=== PATIENT | male | born 1960 | race Caucasian/White ===

== ENCOUNTER 2023-03-01 11:10 | Inpatient (IN) | payer OTHER ==
[2023-03-01] MEDS ORDERED: SODIUM CHLORIDE 0.9% 500 ML 500 ML IV STA (11:30)
--- NOTE | 2023-03-01 11:42 | ED ---
General Adult HPI - General Chief complaint: Arrhythmia/Palpitations Stated complaint: Low Heart Rate Time Seen by Provider: 03/01/23 11:22 Source: patient, RN notes reviewed, old records reviewed Mode of arrival: ambulatory Limitations: no limitations - History of Present Illness Initial comments: This is a 62-year-old male presents emergency department stating that about one month ago he had a low heart rate was In the hospital for about 3 days. Patient states she then follow up with cardiology and he was told that they would just watch for now. Patient states a couple times during this last month she's had episodes where he became very lightheaded and tired but he didn't take his pulse. Patient states today he went in to see his physician in his heart rate was in the low 30s and he admittedly sentiment to the emergency department. Patient states she did feel short of breath and somewhat dizzy. Patient denies any chest pain or palpitations. Patient denies headache patient denies numbness weakness. Patient denies abdominal pain patient as nausea vomiting diarrhea. - Related Data Home Medications Medication Instructions Recorded Confirmed No Known Home Medications 03/01/23 03/01/23 Allergies Allergy/AdvReac Type Severity Reaction Status Date / Time No Known Allergies Allergy Verified 03/01/23 12:32 Review of Systems ROS Statement: Those systems with pertinent positive or pertinent negative responses have been documented in the HPI. ROS Other: All systems not noted in ROS Statement are negative. Past Medical History Past Medical History: No Reported History History of Any Multi-Drug Resistant Organisms: None Reported Past Surgical History: Tonsillectomy Additional Past Surgical History / Comment(s): cyst removal from R arm Past Psychological History: No Psychological Hx Reported Smoking Status: Never smoker Past Alcohol Use History: None Reported Past Drug Use History: None Reported General Exam - General Exam Comments Initial Comments: GENERAL: Patient is well-developed and well-nourished. Patient is nontoxic and well- hydrated and is in no acute distress. ENT: Neck is soft and supple. No significant lymphadenopathy is noted. Oropharynx is clear. Moist mucous membranes. Neck has full range of motion without eliciting any pain. EYES: The sclera were anicteric and conjunctiva were pink and moist. Extraocular movements were intact and pupils were equal round and reactive to light. Eyelids were unremarkable. PULMONARY: Unlabored respirations. Good breath sounds bilaterally. No audible rales rhonchi or wheezing was noted. CARDIOVASCULAR: Patient has a heart rate of 40 beats a minute ABDOMEN: Soft and nontender with normal bowel sounds. No palpable organomegaly was noted. There is no palpable pulsatile mass. SKIN: Skin is clear with no lesions or rashes and otherwise unremarkable. NEUROLOGIC: Patient is alert and oriented x3. Cranial nerves II through XII are grossly intact. Motor and sensory are also intact. Normal speech, volume and content. Symmetrical smile. MUSCULOSKELETAL: Normal extremities with adequate strength and full range of motion. No lower extremity swelling or edema. No calf tenderness. LYMPHATICS: No significant lymphadenopathy is noted PSYCHIATRIC: Normal psychiatric evaluation. Limitations: no limitations Course Vital Signs 03/01/23 03/01/23 11:16 11:19 Temperature 98 F 98.1 F Pulse Rate 46 L 42 L Respiratory 18 12 Rate Blood Pressure 165/93 O2 Sat by Pulse 98 Oximetry Medical Decision Making - Medical Decision Making EKG shows sinus bradycardia at 40 beats a minute NM interval 263 QRS is 82 QT intervals 476 QTC is 410. Patient's EKG shows no ST segment elevation Was pt. sent in by a medical professional or institution (, PA, CAMPER ASSEMBLER, urgent c are, hospital, or [facility]...) When possible be specific @ -Patient was told to come in by his primary medical care provider Did you speak to anyone other than the patient for history (EMS, parent, family, police, friend...)? What history was obtained from this source @ -[No] Did you review nursing and triage notes (agree or disagree)? Why? @ -[I reviewed and agree with nursing and triage notes] Were old charts reviewed (outside hosp., previous admission, EMS record, old EKG , old radiological studies, urgent care reports/EKG's, [facility] records)? Report findings @ -[No old charts were reviewed] Differential Diagnosis (chest pain, altered mental status, abdominal pain women, abdominal pain men, vaginal bleeding, weakness, fever, dyspnea, syncope, headache, dizziness, GI bleed, back pain, seizure, CVA, palpatations, mental hea lth, musculoskeletal)? @ -Differential Dizziness: Benign paroxysmal positional Vertigo, Menieres disease, otitis media, acoustic neuroma, vertebrobasilar insufficiency, cerebellar stroke, encephalitis, hypovolemic, arrhythmia, coronary artery syndrome, anemia, this is not meant to be an all-inclusive list EKG interpreted by me (3pts min.). @ -[As above] X-rays interpreted by me (1pt min.). @ -Showed no acute abnormality CT interpreted by me (1pt min.). @ -[None done] U/S interpreted by me (1pt. min.). @ -[None done] What testing was considered but not performed or refused? (CT, X-rays, U/S, labs)? Why? @ -[None] What meds were considered but not given or refused? Why? @ -[None] Did you discuss the management of the patient with other professionals (professionals i.e. Dr., PA, CAMPER ASSEMBLER, lab, RT, psych nurse, social worker aide, intake counselor, teacher, learning officer, case sealer)? Give summary @ -I spoke with sound physician's and they agreed to admit the patient Was smoking cessation discussed for >3mins.? @ -[No] Was critical care preformed (if so, how long)? @ -[No] Were there social determinants of health that impacted care today? How? (Homelessness, low income, unemployed, alcoholism, drug addiction, transportat ion, low edu. Level, literacy, decrease access to med. care, nursing home, rehab)? @ -[No] Was there de-escalation of care discussed even if they declined (Discuss DNR or withdrawal of care, Hospice)? DNR status @ -[No] What co-morbidities impacted this encounter? (DM, HTN, Smoking, COPD, CAD, Cancer, CVA, ARF, Chemo, Hep., AIDS, mental health diagnosis, sleep apnea, morbid obesity)? @ -[None] Was patient admitted / discharged? Hospital course, mention meds given and route, prescriptions, significant lab abnormalities, going to OR and other pertinent info. @ -Patient was seen in emergency department and heart rate stayed between 38 and 44 beats a minute he was asymptomatic as long as he is lying in bed however if he got up he was dizzy. I spoke with sound physician's and they agreed to admit the patient admitted the patient I consult cardiology Undiagnosed new problem with uncertain prognosis? @ -[No] Drug Therapy requiring intensive monitoring for toxicity (Heparin, Nitro, Insulin, Cardizem)? @ -[No] Were any procedures done? @ -[No] Diagnosis/symptom? @ -Symptomatic bradycardia Acute, or Chronic, or Acute on Chronic? @ -Acute Uncomplicated (without systemic symptoms) or Complicated (systemic symptoms)? @ -Complicated Side effects of treatment? @ -[No] Exacerbation, Progression, or Severe Exacerbation? @ -[No] Poses a threat to life or bodily function? How? (Chest pain, [place], [place], pneumonia, PE, COPD, DKA, ARF, appy, cholecystitis, CVA, Diverticulitis, Homicidal, Suicidal, threat to staff... and all critical care pts) @ -Yes this could lead to poor perfusion and end organ dysfunction - Lab Data Result diagrams: 03/01/23 11:41 03/01/23 11:41 Lab Results 03/01/23 03/01/23 03/01/23 Range/Units 11:41 11:41 11:41 WBC 6.9 (3.8-10.6) k/uL RBC 5.21 (4.30-5.90) m/uL Hgb 15.7 (13.0-17.5) gm/dL Hct 46.4 (39.0-53.0) % MCV 89.2 (80.0-100.0) fL MCH 30.3 (25.0-35.0) pg MCHC 33.9 (31.0-37.0) g/dL RDW 12.7 (11.5-15.5) % Plt Count 243 (150-450) k/uL MPV 7.0 Neutrophils % 62 % Lymphocytes % 26 % Monocytes % 5 % Eosinophils % 4 % Basophils % 1 % Neutrophils # 4.3 (1.3-7.7) k/uL Lymphocytes # 1.8 (1.0-4.8) k/uL Monocytes # 0.4 (0-1.0) k/uL Eosinophils # 0.3 (0-0.7) k/uL Basophils # 0.1 (0-0.2) k/uL PT 10.6 (9.0-12.0) sec INR 1.0 (<1.2) APTT 24.7 (22.0-30.0) sec Sodium 143 (137-145) mmol/L Potassium 3.7 (3.5-5.1) mmol/L Chloride 104 (98-107) mmol/L Carbon Dioxide 26 (22-30) mmol/L Anion Gap 13 mmol/L BUN 16 (9-20) mg/dL Creatinine 1.12 (0.66-1.25) mg/dL Est GFR (CKD-EPI)AfAm 82 (>60 ml/min/1.73 sqM) Est GFR (CKD-EPI)NonAf 71 (>60 ml/min/1.73 sqM) Glucose 102 H (74-99) mg/dL Calcium 9.3 (8.4-10.2) mg/dL Magnesium 2.3 (1.6-2.3) mg/dL Total Bilirubin 0.7 (0.2-1.3) mg/dL AST 36 (17-59) U/L ALT 38 (4-49) U/L Alkaline Phosphatase 67 (38-126) U/L Troponin I (0.000-0.034) ng/mL Total Protein 8.1 (6.3-8.2) g/dL Albumin 4.9 (3.5-5.0) g/dL TSH 1.510 (0.465-4.680) mIU/L 03/01/23 Range/Units 11:41 WBC (3.8-10.6) k/uL RBC (4.30-5.90) m/uL Hgb (13.0-17.5) gm/dL Hct (39.0-53.0) % MCV (80.0-100.0) fL MCH (25.0-35.0) pg MCHC (31.0-37.0) g/dL RDW (11.5-15.5) % Plt Count (150-450) k/uL MPV Neutrophils % % Lymphocytes % % Monocytes % % Eosinophils % % Basophils % % Neutrophils # (1.3-7.7) k/uL Lymphocytes # (1.0-4.8) k/uL Monocytes # (0-1.0) k/uL Eosinophils # (0-0.7) k/uL Basophils # (0-0.2) k/uL PT (9.0-12.0) sec INR (<1.2) APTT (22.0-30.0) sec Sodium (137-145) mmol/L Potassium (3.5-5.1) mmol/L Chloride (98-107) mmol/L Carbon Dioxide (22-30) mmol/L Anion Gap mmol/L BUN (9-20) mg/dL Creatinine (0.66-1.25) mg/dL Est GFR (CKD-EPI)AfAm (>60 ml/min/1.73 sqM) Est GFR (CKD-EPI)NonAf (>60 ml/min/1.73 sqM) Glucose (74-99) mg/dL Calcium (8.4-10.2) mg/dL Magnesium (1.6-2.3) mg/dL Total Bilirubin (0.2-1.3) mg/dL AST (17-59) U/L ALT (4-49) U/L Alkaline Phosphatase (38-126) U/L Troponin I <0.012 (0.000-0.034) ng/mL Total Protein (6.3-8.2) g/dL Albumin (3.5-5.0) g/dL TSH (0.465-4.680) mIU/L Disposition Clinical Impression: Symptomatic bradycardia Disposition: ADMITTED IP TO THIS HOSP Referrals: [facility],Clinic [Primary Care Provider] - 1-2 days Time of Disposition: 13:51
[2023-03-01 11:54] LABS: Basophils # (A) 0.1 k/uL (0-0.2); Basophils % (A) 1 %; Eosinophils # (A) 0.3 k/uL (0-0.7); Eosinophils % (A) 4 %; HCT 46.4 % (39.0-53.0); HGB 15.7 gm/dL (13.0-17.5); Lymphocytes # (A) 1.8 k/uL (1.0-4.8); Lymphocytes % (A) 26 %; MCH 30.3 pg (25.0-35.0); MCHC 33.9 g/dL (31.0-37.0); MCV 89.2 fL (80.0-100.0); Monocytes # (A) 0.4 k/uL (0-1.0); Monocytes % (A) 5 %; Neutrophils # (A) 4.3 k/uL (1.3-7.7); Neutrophils % (A) 62 %; Platelet Count 243 k/uL (150-450); RBC 5.21 m/uL (4.30-5.90); RDW 12.7 % (11.5-15.5); WBC 6.9 k/uL (3.8-10.6)
[2023-03-01 12:02] LABS: Partial Thromboplastin Time 24.7 sec (22.0-30.0); Prothrombin Time 10.6 sec (9.0-12.0)
--- NOTE | 2023-03-01 12:04 | XR ---
EXAMINATION TYPE: XR chest 2V DATE OF EXAM: 03/01/2023 12:01 PM COMPARISON: None TECHNIQUE: XR chest 2V Frontal and lateral views of the chest. CLINICAL INDICATION:Male, 62 years old with history of dysrhythmia; FINDINGS: Lungs/Pleura: There is no evidence of pleural effusion, focal consolidation, or pneumothorax. Pulmonary vascularity: Unremarkable. Heart/mediastinum: Cardiomediastinal silhouette is prominent in size. Musculoskeletal: No acute osseous pathology. IMPRESSION: No acute cardiopulmonary disease/process.
[2023-03-01 12:23] LABS: Albumin 4.9 g/dL (3.5-5.0); Calcium 9.3 mg/dL (8.4-10.2); Magnesium 2.3 mg/dL (1.6-2.3); Potassium 3.7 mmol/L (3.5-5.1); Total Bilirubin 0.7 mg/dL (0.2-1.3); Total Protein 8.1 g/dL (6.3-8.2)
[2023-03-01] MEDS ORDERED: NITROGLYCERIN SL TABS 0.4 MG TAB SUBLINGUAL PRN (13:51)
--- NOTE | 2023-03-01 15:49 | P.HPIM ---
History of Present Illness H&P Date: 03/01/23 Chief Complaint: Lightheadedness Patient is a 62-year-old male with no significant past medical history who was sent from the [place] clinic for bradycardia. Patient states that about a month ago he went to a clinic because of shortness of breath and was found to have bradycardia so they sent him to the hospital. Patient states that he went to [facility] was monitored there for 3 days and then he was discharged and told to follow-up with cardiology. Patient states that he followed up with Dr. Benitez and that day his heart rate was within normal limits so he was told to continue to monitor himself. Patient went to the [place] clinic to get esta blished. He did not have any symptoms or complaints prior to his visit at the clinic. At the clinic he did get a little bit lightheaded. Patient states that sometime last month when he is in the car with his he felt he was almost about to pass out. However he did not lose consciousness. Patient heart rate currently in the 40s. He is resting comfortably in bed. He is denying any chest pain or shortness of breath or lightheadedness. EKG shows sinus bradycardia. Data reviewed: Troponin within normal limits. TSH within normal limits. EKG shows sinus bradycardia. Review of symptoms:10 ROS reviewed and are negative except as noted in HPI Physical exam General: [Alert and oriented, well nourished, no acute distress]. Eye: [PERRL, EOMI, normal conjunctiva]. HENT: [Normocephalic, clear tympanic membranes, normal hearing, moist oral mucosa, no scleral icterus, no sinus tenderness]. Neck: [Supple, non-tender, no carotid bruits, no JVD, no lymphadenopathy]. Lungs: [Clear to auscultation and percussion, non-labored respiration]. Heart: [Bradycardia, regular rhythm, no murmur, gallop or edema]. Abdomen: [Soft, non-tender, non-distended, normal bowel sounds, no masses]. Musculoskeletal: [Normal range of motion and strength, no tenderness or swelling]. Skin: [Skin is warm, dry and pink, no rashes or lesions]. Neurologic: [Awake, alert, and oriented X3, CN II-XII intact]. Psychiatric: [Cooperative, appropriate mood and affect]. Assessment Sinus bradycardia Plan Patient currently asymptomatic. There is no high degree block seen on the EKG. No emergent need for pacemaker. However I believe patient may benefit from pacemaker as he is intermittently symptomatic. Will defer to cardiology. Trend troponins Nothing by mouth past midnight DVT prophylaxis: Subcu heparin Anticipated discharge: Tomorrow Anticipated discharge place: Home Past Medical History Past Medical History: No Reported History History of Any Multi-Drug Resistant Organisms: None Reported Past Surgical History: Tonsillectomy Additional Past Surgical History / Comment(s): cyst removal from R arm Past Psychological History: No Psychological Hx Reported Smoking Status: Never smoker Past Alcohol Use History: None Reported Past Drug Use History: None Reported Medications and Allergies Home Medications Medication Instructions Recorded Confirmed Type No Known Home Medications 03/01/23 03/01/23 History Allergies Allergy/AdvReac Type Severity Reaction Status Date / Time No Known Allergies Allergy Verified 03/01/23 12:32 Physical Exam Osteopathic Statement: *. No significant issues noted on an osteopathic structural exam other than those noted in the History and Physical/Consult. Vitals: Vital Signs Temp Pulse Resp BP Pulse Ox 03/01/23 11:19 98.1 F 42 L 12 03/01/23 11:16 98 F 46 L 18 165/93 98 Intake and Output 03/01/23 03/01/23 03/01/23 06:59 14:59 22:59 Other: Weight 190 kg Results CBC & Chem 7: 03/01/23 11:41 03/01/23 11:41 Labs: Abnormal Lab Results - Last 24 Hours (Table) 03/01/23 Range/Units 11:41 Glucose 102 H (74-99) mg/dL
[2023-03-01] MEDS: HEPARIN SODIUM,PORCINE/PF 5,000 UNIT/0.5 ML SYRINGE SQ SCH (17:28)
[2023-03-02] MEDS: HEPARIN SODIUM,PORCINE/PF 5,000 UNIT/0.5 ML SYRINGE SQ SCH ×4 (01:55→18:14)
[2023-03-02] MEDS: ASPIRIN 325 MG TAB PO SCH ×2 (08:00→08:03)
--- NOTE | 2023-03-02 11:02 | P.CRDCN ---
History of Present Illness History of present illness: HISTORY OF PRESENT ILLNESS: This is a 62-year-old male with a past medical history significant for sinus bradycardia, hyperlipidemia, mild coronary artery disease, and shortness of breath with exertion. Patient follows in the office with Dr. Benitez. We have been asked to see the patient in consultation for bradycardia. Patient examined at the bedside. Patient was recently admitted to [facility] in January 2023 with shortness of breath and bradycardia with a heart rate in the 30s and 40s. He was discharged home in stable condition. The patient followed up with Dr. Benitez in January 2023 and no pacemaker was indicated at that time. The patient states that he went to the [place] clinic yesterday to establish care and an EKG was performed which revealed bradycardia and he was referred to the hospital for further evaluation. The patient denies any chest pain or pressure. He denies any shortness of breath. 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 He states that his vision had returned to normal by the time they got home. He denies having any syncopal episodes. He denies any dizziness or lightheadedness. It is noted that the patient had an echocardiogram performed at [facility] revealing ejection fra ction 55-60%, trace aortic regurgitation, mild mitral regurgitation, and mild tricuspid regurgitation. He underwent a stress test which was abnormal and then underwent heart catheterization showing mild CAD with 10% stenosis of LAD and RCA. The patient was found to have hyperlipidemia with an LDL of 130. He was discharged home with a statin however the patient is refusing to take this as he states he does not want to be on medications. * EKG reveals sinus bradycardia * Chest xray negative for acute process * Laboratory data: WBC 6.9. Hemoglobin 15.7. Platelet count 243. Sodium 143. Potassium 3.7. BUN 16. Creatinine 1.12. Troponin negative 3. TSH 1.510. * Current home cardiac medications include none REVIEW OF SYSTEMS: At the time of my exam: CONSTITUTIONAL: Denies fever or chills. HEENT: Denies blurred vision, vision changes, or eye pain. Denies hemoptysis CARDIOVASCULAR: Denies chest pain. Denies orthopnea. Denies PND. Denies palpitations RESPIRATORY: Denies shortness of breath. GASTROINTESTINAL: Denies abdominal pain. Denies nausea or vomiting. HEMATOLOGIC: Denies bleeding disorders. GENITOURINARY: Denies any blood in urine. SKIN: Denies pruitis. Denies rash. PHYSICAL EXAM: VITAL SIGNS: Reviewed. GENERAL: Well-developed in no acute distress. HEENT: Head is normocephalic. Pupils are equal, round. Sclerae anicteric. Mucous membranes of the mouth are moist. Neck supple. No JVD or thyromegaly LUNGS: Respirations even and unlabored. Lungs essentially clear to auscultation bilaterally. HEART: Bradycardic. Regular rate and rhythm. S1 and S2 heard. ABDOMEN: Soft. Nondistended. Nontender. EXTREMITIES: Normal range of motion. No clubbing or cyanosis. Peripheral pulses intact. No lower extremity edema NEUROLOGIC: Awake and alert. Oriented x 3. ASSESSMENT: Sinus bradycardia Mild nonobstructive coronary artery disease Shortness of breath with exertion Hyperlipidemia, refusing statin therapy Hypertension PLAN: No need to repeat echo as this was performed recently Add aspirin 81mg daily Patient declining statin therapy at recent outpatient follow up Add amlodipine 5 mg daily for blood pressure control Increase activity as tolerated No plans for pacemaker implantation at this time Further recommendations pending patient's course Nurse practitioner note has been reviewed by physician. Signing provider agrees with the documented findings, assessment, and plan of care. Past Medical History Past Medical History: No Reported History Additional Past Medical History / Comment(s): Bradycardia History of Any Multi-Drug Resistant Organisms: None Reported Past Surgical History: Tonsillectomy Additional Past Surgical History / Comment(s): cyst removal from R arm Past Anesthesia/Blood Transfusion Reactions: No Reported Reaction Past Psychological History: No Psychological Hx Reported Smoking Status: Never smoker Past Alcohol Use History: None Reported Past Drug Use History: None Reported - Past Family History Father Family Medical History: Diabetes Mellitus Medications and Allergies Home Medications Medication Instructions Recorded Confirmed Type No Known Home Medications 03/01/23 03/01/23 History Allergies Allergy/AdvReac Type Severity Reaction Status Date / Time No Known Allergies Allergy Verified 03/01/23 12:32 Physical Exam Vitals: Vital Signs Temp Pulse Pulse Pulse Resp BP BP 03/02/23 08:04 03/02/23 08:00 97.9 F 38 L 38 L 16 157/86 03/02/23 04:00 97.8 F 44 L 18 156/76 03/02/23 02:00 44 L 18 03/02/23 00:00 40 L 18 156/78 03/01/23 21:32 03/01/23 20:00 97.8 F 41 L 18 150/74 03/01/23 17:51 41 L 16 03/01/23 17:50 97.7 F 41 L 16 166/76 03/01/23 16:00 42 L 155/90 03/01/23 15:00 98.0 F 41 L 16 161/89 03/01/23 11:19 98.1 F 42 L 12 03/01/23 11:16 98 F 46 L 18 165/93 Pulse Ox FiO2 03/02/23 08:04 97 03/02/23 08:00 97 03/02/23 04:00 96 03/02/23 02:00 03/02/23 00:00 95 03/01/23 21:32 96 21 03/01/23 20:00 96 03/01/23 17:51 03/01/23 17:50 96 03/01/23 16:00 03/01/23 15:00 97 03/01/23 11:19 03/01/23 11:16 98 Intake and Output 03/01/23 03/02/23 03/02/23 22:59 06:59 14:59 Intake Total 180 Balance 180 Intake: Oral 180 Other: Voiding Method Toilet Toilet Toilet # Voids 2 Results 03/01/23 11:41 03/01/23 11:41 Cardiac Enzymes 03/01/23 03/01/23 03/01/23 Range/Units 11:41 11:41 15:25 AST 36 (17-59) U/L Troponin I <0.012 <0.012 (0.000-0.034) ng/mL 03/01/23 Range/Units 18:47 AST (17-59) U/L Troponin I <0.012 (0.000-0.034) ng/mL Coagulation 03/01/23 Range/Units 11:41 PT 10.6 (9.0-12.0) sec APTT 24.7 (22.0-30.0) sec CBC 03/01/23 Range/Units 11:41 WBC 6.9 (3.8-10.6) k/uL RBC 5.21 (4.30-5.90) m/uL Hgb 15.7 (13.0-17.5) gm/dL Hct 46.4 (39.0-53.0) % Plt Count 243 (150-450) k/uL Comprehensive Metabolic Panel 03/01/23 Range/Units 11:41 Sodium 143 (137-145) mmol/L Potassium 3.7 (3.5-5.1) mmol/L Chloride 104 (98-107) mmol/L Carbon Dioxide 26 (22-30) mmol/L BUN 16 (9-20) mg/dL Creatinine 1.12 (0.66-1.25) mg/dL Glucose 102 H (74-99) mg/dL Calcium 9.3 (8.4-10.2) mg/dL AST 36 (17-59) U/L ALT 38 (4-49) U/L Alkaline Phosphatase 67 (38-126) U/L Total Protein 8.1 (6.3-8.2) g/dL Albumin 4.9 (3.5-5.0) g/dL Current Medications Generic Name Dose Route Start Last Admin Trade Name Freq PRN Reason Stop Dose Admin Aspirin 325 mg 03/02/23 09:00 03/02/23 08:03 Aspirin 325 Mg Tab PO Not Given DAILY SUNG Heparin Sodium (Porcine) 5,000 unit 03/01/23 16:00 03/02/23 08:03 Heparin Sodium,Porcine/Pf 5,000 Unit/0.5 Ml Syringe SQ Not Given Q8HR SUNG Nitroglycerin 0.4 mg 03/01/23 13:51 Nitroglycerin Sl Tabs 0.4 Mg Tab SUBLINGUAL Q5M PRN Chest Pain Intake and Output 03/01/23 03/02/23 03/02/23 22:59 06:59 14:59 Intake Total 180 Balance 180 Intake: Oral 180 Other: Voiding Method Toilet Toilet Toilet # Voids 2 03/01/23 11:41 03/01/23 11:41
[2023-03-02] MEDS: amLODIPine 5 MG TAB PO SCH (11:41)
--- NOTE | 2023-03-02 12:46 | P.PN ---
Subjective Progress Note Date: 03/02/23 Patient is a 62-year-old male with no significant past medical history who was sent from the [place] clinic for bradycardia. Patient states that about a month ago he went to a clinic because of shortness of breath and was found to have bradycardia so they sent him to the hospital. Patient states that he went to [facility] was monitored there for 3 days and then he was discharged and told to follow-up with cardiology. Patient states that he followed up with Dr. Benitez and that day his heart rate was within normal limits so he was told to continue to monitor himself. Patient went to the [place] clinic to get established. He did not have any symptoms or complaints prior to his visit at the clinic. At the clinic he did get a little bit lightheaded. Patient states that sometime last month when he is in the car with his he felt he was almost about to pass out. However he did not lose consciousness. Patient heart rate currently in the 40s. He is resting comfortably in bed. He is denying any chest pain or shortness of breath or lightheadedness. EKG shows sinus bradycardia. Cardiology recommended to continue to monitor patient Patient was seen this morning. Patient is denying any acute complaints. He denied any lightheadedness or chest pain. His heart rate is in the 30s and 40s. 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 Troponin is negative 3 I reviewed cardiology note who said no plan for pacemaker at this time and will continue to monitor DVT prophylaxis: Subcu heparin Anticipated discharge: Tomorrow Anticipated discharge place: Home Objective - Vital Signs Vital signs: Vital Signs Temp 97.4 F L 03/02/23 11:44 Pulse 42 L 03/02/23 11:44 Resp 16 03/02/23 11:44 BP 154/84 03/02/23 11:44 Pulse Ox 97 03/02/23 11:44 FiO2 21 03/01/23 21:32 Intake & Output 03/01/23 03/02/23 03/02/23 18:59 06:59 18:59 Intake Total 180 Balance 180 Weight 190 kg Intake: Oral 180 Other: Voiding Method Toilet Toilet Toilet # Voids 2 - Labs CBC & Chem 7: 03/01/23 11:41 03/01/23 11:41
[2023-03-02 13:42] LABS: LDL Cholesterol,Calculated 125.1 mg/dL (0.0-131.0)
[2023-03-03] MEDS: HEPARIN SODIUM,PORCINE/PF 5,000 UNIT/0.5 ML SYRINGE SQ SCH ×3 (01:45→16:06)
[2023-03-03] MEDS: amLODIPine 5 MG TAB PO SCH ×3 (08:28→14:32)
[2023-03-03] MEDS: ASPIRIN 81 MG PO SCH (08:31)
--- NOTE | 2023-03-03 09:34 | P.PN ---
Subjective Progress Note Date: 03/03/23 Patient is a 62-year-old male with no significant past medical history who was sent from the [place] clinic for bradycardia. Patient states that about a month ago he went to a clinic because of shortness of breath and was found to have bradycardia so they sent him to the hospital. Patient states that he went to [facility] was monitored there for 3 days and then he was discharged and told to follow-up with cardiology. Patient states that he followed up with Dr. Benitez and that day his heart rate was within normal limits so he was told to continue to monitor himself. Patient went to the [place] clinic to get established. He did not have any symptoms or complaints prior to his visit at the clinic. At the clinic he did get a little bit lightheaded. Patient states that sometime last month when he is in the car with his he felt he was almost about to pass out. However he did not lose consciousness. Patient heart rate currently in the 40s. He is resting comfortably in bed. He is denying any chest pain or shortness of breath or lightheadedness. EKG shows sinus bradycardia. Cardiology recommended to continue to monitor patient Patient states that he does have some shortness of breath with exertion. He is denying any syncope or presyncope at this time. 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 Cardiology started the patient on amlodipine however patient refusing to take i t. Patient blood pressure currently in the 150s systolically which is acceptable. Okay to hold off on amlodipine for now. Awaiting for line maintainer to see patient DVT prophylaxis: Subcu heparin Anticipated discharge: We'll discharge patient cleared by cardiology Anticipated discharge place: Home Objective - Vital Signs Vital signs: Vital Signs Temp 97.3 F L 03/03/23 08:30 Pulse 39 L 03/03/23 08:30 Resp 18 03/03/23 08:30 BP 154/73 03/03/23 08:30 Pulse Ox 97 03/03/23 08:30 FiO2 21 03/01/23 21:32 Intake & Output 03/02/23 03/03/23 03/03/23 18:59 06:59 18:59 Intake Total 180 Balance 180 Intake: Oral 180 Other: Voiding Method Toilet Toilet Toilet # Voids 1 3 - Labs CBC & Chem 7: 03/01/23 11:41 03/01/23 11:41
--- NOTE | 2023-03-03 11:00 | P.PN ---
Subjective Progress Note Date: 03/03/23 PROGRESS NOTE The patient is a 62-year-old male with a known history of hypertension, sinus bradycardia and mild CAD, followed by Dr. Benitez who presented with sinus bradycardia and mild fatigue and dizziness but no syncope. He continues to feel tired and he has no chest discomfort. He is slightly dizzy. He continues to be in sinus mechanism with no significant pauses. He was reluctant in the morning to take amlodipine. His blood pressure remains elevated Medications: Aspirin, he was prescribed amlodipine 5 mg daily PHYSICAL EXAMINATION: Blood pressure 154/70 heart rate 39 LUNGS: Clear to auscultation HEART: Regular rate and rhythm, S1, S2. No S3. No systolic murmur ABDOMEN: Soft, nontender, no organomegaly EXTREMETIES: No edema LAB: Cholesterol is 195, LDL 125 IMPRESSION: 1. Sinus bradycardia with no significant pauses, patient has symptoms of fatigue and occasional dizziness that could be related to the sinus bradycardia 2. Mild CAD 3. Hypertension 4. Hyperlipidemia, patient declined statin in the past PLAN: 1. Start amlodipine 2. Increase physical activity and monitor heart rate 3. Of the patient has significant chronotropic incompetence and symptoms he may require permanent pacemaker 4. Depending on his progress further recommendations will be made Objective - Vital Signs Vital signs: Vital Signs Temp 97.3 F L 03/03/23 08:30 Pulse 39 L 03/03/23 08:30 Resp 18 03/03/23 08:30 BP 154/73 03/03/23 08:30 Pulse Ox 97 03/03/23 08:30 FiO2 21 03/01/23 21:32 Intake & Output 03/02/23 03/03/23 03/03/23 18:59 06:59 18:59 Intake Total 180 Balance 180 Intake: Oral 180 Other: Voiding Method Toilet Toilet Toilet # Voids 1 3 - Labs CBC & Chem 7: 03/01/23 11:41 03/01/23 11:41
[2023-03-04] MEDS: HEPARIN SODIUM,PORCINE/PF 5,000 UNIT/0.5 ML SYRINGE SQ SCH ×4 (01:06→23:05)
[2023-03-04] MEDS: amLODIPine 5 MG TAB PO SCH (09:46)
[2023-03-04] MEDS: ASPIRIN 81 MG PO SCH (09:47)
--- NOTE | 2023-03-04 14:29 | P.PN ---
Subjective Progress Note Date: 03/04/23 PROGRESS NOTE The patient is a 62-year-old male with a known history of hypertension, sinus bradycardia and mild CAD, followed by Dr. Benitez who presented with sinus bradycardia and mild fatigue and dizziness with near syncope. He continues to feel tired and he has no chest discomfort. He is slightly dizzy. He continues to be in sinus mechanism with no significant pauses. records obtained from [facility] and reviewed. Patient gives history of episodes where he has had to stop driving and his had to take the steering wheel because he had sudden onset of blurry vision nausea. Another episode where his daughter had to drive him home because he felt completely wiped out. Patient ambulated down the hallway and back to his room while being monitored. His heart rate went up to 108 in he was complaining of shortness of breath and appeared dyspneic. Medications: Aspirin, amlodipine 5 mg daily PHYSICAL EXAMINATION: Blood pressure 149/85 heart rate 42 LUNGS: Clear to auscultation HEART: Regular rate and rhythm, S1, S2. No S3. No systolic murmur ABDOMEN: Soft, nontender, no organomegaly EXTREMETIES: No edema LAB: Cholesterol is 195, LDL 12, tsh 1.510 IMPRESSION: 1. Sinus bradycardia with no significant pauses, patient has symptoms of fatigue and occasional dizziness that could be related to the sinus bradycardia 2. Mild CAD 3. Hypertension 4. Hyperlipidemia, patient declined statin in the past PLAN: 1. Continue amlodipine 2. Increase physical activity and monitor heart rate 3. Of the patient has significant chronotropic incompetence and symptoms he may require permanent pacemaker 4. Plan to monitor patient on telemetry for another 24 hours. Nurse practitioner note has been reviewed, I agree with the documented findings and plan of care. Patient was seen and examined. Objective - Vital Signs Vital signs: Vital Signs Temp 97.7 F 03/04/23 04:00 Pulse 47 L 03/04/23 04:00 Resp 16 03/04/23 04:00 BP 147/84 03/04/23 04:00 Pulse Ox 98 03/04/23 04:00 FiO2 21 03/01/23 21:32 Intake & Output 03/03/23 03/04/23 03/04/23 18:59 06:59 18:59 Intake Total 360 1080 Balance 360 1080 Intake: Oral 360 1080 Other: Voiding Method Toilet Toilet # Voids 1 2 - Labs CBC & Chem 7: 03/01/23 11:41 03/01/23 11:41
--- NOTE | 2023-03-04 15:35 | P.PN ---
Subjective Progress Note Date: 03/04/23 Patient is a 62-year-old male with no significant past medical history who was sent from the [place] clinic for bradycardia. Patient states that about a month ago he went to a clinic because of shortness of breath and was found to have bradycardia so they sent him to the hospital. Patient states that he went to [facility] was monitored there for 3 days and then he was discharged and told to follow-up with cardiology. Patient states that he followed up with Dr. Benitez and that day his heart rate was within normal limits so he was told to continue to monitor himself. Patient went to the [place] clinic to get established. He did not have any symptoms or complaints prior to his visit at the clinic. At the clinic he did get a little bit lightheaded. Patient states that sometime last month when he is in the car with his he felt he was almost about to pass out. However he did not lose consciousness. Patient heart rate currently in the 40s. He is resting comfortably in bed. He is denying any chest pain or shortness of breath or lightheadedness. EKG shows sinus bradycardia. Cardiology recommended to continue to monitor patient Patient states that today the collision repair technician made him walk in the hallways. He denied any symptoms while walking the hallway. Patient heart rate continues to be in the 30s and 40s. 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 Cardiology would like to monitor patient for another 24 hours Patient refuses to take amlodipine DVT prophylaxis: Subcu heparin Anticipated discharge: We'll discharge patient once cleared by cardiology Anticipated discharge place: Home Objective - Vital Signs Vital signs: Vital Signs Temp 97.8 F 03/04/23 11:36 Pulse 42 L 03/04/23 14:00 Resp 17 03/04/23 14:00 BP 149/85 03/04/23 11:36 Pulse Ox 97 03/04/23 11:36 FiO2 21 03/01/23 21:32 Intake & Output 03/03/23 03/04/23 03/04/23 18:59 06:59 18:59 Intake Total 360 1080 1256 Balance 360 1080 1256 Intake: Oral 360 1080 1256 Other: Voiding Method Toilet Toilet Toilet # Voids 1 2 2 - Labs CBC & Chem 7: 03/01/23 11:41 03/01/23 11:41
[2023-03-05] MEDS ORDERED: ceFAZolin 1 GM in SODIUM CHLORIDE 0.9% IRRIG BTL 250 ML IRRIGATION PRN (07:00)
[2023-03-05] MEDS: amLODIPine 5 MG TAB PO SCH (08:43)
[2023-03-05] MEDS: ASPIRIN 81 MG PO SCH (08:45)
[2023-03-05] MEDS: HEPARIN SODIUM,PORCINE/PF 5,000 UNIT/0.5 ML SYRINGE SQ SCH ×3 (08:47→23:56)
--- NOTE | 2023-03-05 10:25 | CDI ---
Documentation Clarification Form Date: 03/05/2023 10:23:45 AM From: Afshan Hatch RN, CCDS Admit Date: 03/01/2023 1:53:00 PM Patient Name: Chase Echols Visit Number: [id number] Discharge Date: ATTENTION: The Clinical Documentation Specialists (CDI) and [facility] Coding Staff appreciate your assistance in clarifying documentation. Please respond to the clarification below the line at the bottom and electronically sign. The CDI & [facility] Coding staff will review the response and follow-up if needed. Please note: Queries are made part of the Legal Health Record. If you have any questions, please contact the author of this message via ITS. Dr.Amandeep Santo Your patient has a documented BMI 65.5, weight is 190 kg in the ongoing daily physical assessment. Based on this information and the findings below, is there an additional diagnosis that is clinically appropriate for this patient? Patient history/risk factors: Clinical Indicators: 62-year-old male present low heart rate for about 3 days. He reports no medication and no medical history. He is diagnosed with symptomatic bradycardia. Height 5 ft. 7 in, [id number] kg, BMI 65.5 on 03/05/23 He has no lower extremity swelling or edema. Treatment: Cardiac/monitoring analyst Physical assessment per protocol Is there an additional diagnosis that is clinically appropriate for this patient? [ ] Morbid Obesity BMI 65.6 kg [ x ] No additional diagnosis/Not clinically significant [ ] Unable to determine [ ] Other, please specify (Template Last Reviewed: November 2022) MTDD
[2023-03-05 10:53] LABS: Glucose,Whole Blood 96 mg/dL (70-110)
[2023-03-05] MEDS ORDERED: SODIUM CHLORIDE 0.9% 250 ML IV ONE (12:20)
[2023-03-05] MEDS ORDERED: IOPAMIDOL-370 100ML BTL INJ ONE (12:25)
[2023-03-05] MEDS: MIDAZOLAM 2 MG/2 ML VIAL IV ONE (12:52)
[2023-03-05] MEDS ORDERED: fentaNYL (PF) 50 MCG/ML 2 ML AMP IV ONE (12:52)
--- NOTE | 2023-03-05 14:19 | P.PN ---
Subjective Progress Note Date: 03/05/23 Hospital Course: 62-year-old male with no significant past medical history who was sent from the [place] clinic for bradycardia. Patient states that about a month ago he went to a clinic because of shortness of breath and was found to have bradycardia so they sent him to the hospital. Patient states that he went to [facility] was monitored there for 3 days and then he was discharged and told to follow-up with cardiology. Patient states that he followed up with Dr. Benitez and that day his heart rate was within normal limits so he was told to continue to monitor himself. Patient went to the [place] clinic to get established. He did not have any symptoms or complaints prior to his visit at the clinic. At the clinic he did get a little bit lightheaded. Patient states that sometime last month when he is in the car with his he felt he was almost about to pass out. H owever he did not lose consciousness. Cardiology consulted. Patient pending pacemaker placement. Subjective: Patient seen and examined at bedside. No acute events overnight. He claims that he still gets short of breath with ambulation, but denies any presyncopal or syncopal episodes. Denies any chest pain, cough, abdominal pain, nausea, vomiting, urinary or bowel complaints. Pertinent positives and negatives as discussed above, a complete review of systems was performed and all other systems are negative. Vitals Signs Reviewed. General: nontoxic, no distress, appears at stated age Derm: warm, dry Head: atraumatic, normocephalic, symmetric Eyes: EOMI, no lid lag, anicteric sclera Mouth: no lip lesion, mucus membranes moist Cardiovascular: S1S2 reg, bradycardic, no murmur Lungs: CTA bilateral, no rhonchi, no rales , no accessory muscle use Abdominal: soft, nontender to palpation, no guarding, no appreciable organomegaly Ext: no gross muscle atrophy, no edema, no contractures Neuro: CN II-XI grossly intact, no focal neuro deficits Psych: Alert, oriented, appropriate affect Data Reviewed Today: Pertinent Labs: Glucose this morning was 26 Imaging: None Assessment and Plan: Symptomatic bradycardia Hypertension -Cardiology consulted, pending permanent pacemaker -Continue telemetry -Remains hypertensive, on amlodipine 5 mg -Continue consider adding hydrochlorothiazide DVT ppx: Subcu heparin Code status: Full code Anticipated discharge place: Home Anticipated discharge time: Likely tomorrow Objective - Vital Signs Vital signs: Vital Signs Temp 98.0 F 03/05/23 08:42 Pulse 43 L 03/05/23 09:47 Resp 18 03/05/23 08:42 BP 154/77 03/05/23 09:47 Pulse Ox 96 03/05/23 08:42 FiO2 21 03/01/23 21:32 Intake & Output 03/04/23 03/05/23 03/05/23 18:59 06:59 18:59 Intake Total 1374 360 100 Balance 1374 360 100 Intake: IV 100 Oral 1374 360 Other: Voiding Method Toilet Toilet # Voids 2 2 - Labs CBC & Chem 7: 03/01/23 11:41 03/01/23 11:41
--- NOTE | 2023-03-05 14:45 | P.PN ---
Subjective Progress Note Date: 03/05/23 PROGRESS NOTE The patient is a 62-year-old male with a known history of hypertension, sinus bradycardia and mild CAD, followed by Dr. Benitez who presented with sinus bradycardia and mild fatigue and dizziness with near syncope. He continues to feel tired and he has no chest discomfort. He is slightly dizzy. He continues to be in sinus mechanism with no significant pauses. records obtained from [facility] and reviewed. Patient gives history of episodes where he has had to stop driving and his had to take the steering wheel because he had sudden onset of blurry vision nausea. Another episode where his daughter had to drive him home because he felt completely wiped out. Patient ambulated down the hallway and back to his room while being monitored. His heart rate went up to 108 in he was complaining of shortness of breath and appeared dyspneic. 03/05 Patient denies any new complaints today. He has no chest pain, no lightheadedness or dizziness. Reviewed telemetry monitoring and patient continues to be bradycardic, he is in the 30s during the night but also demons trated heart rate at 37 during the day today. Patient has no triggering factors, no abnormal TSH. He is not on any medications that would slow his heart rate. Discussed case with Dr. Benitez and plan for permanent pacemaker Medications: Aspirin, amlodipine 5 mg daily PHYSICAL EXAMINATION: Blood pressure 154/77 heart rate 42 LUNGS: Clear to auscultation HEART: Regular rate and rhythm, S1, S2. No S3. No systolic murmur ABDOMEN: Soft, nontender, no organomegaly EXTREMETIES: No edema LAB: Cholesterol is 195, LDL 12, tsh 1.510 IMPRESSION: 1. Sinus bradycardia with no significant pauses, patient has symptoms of fatigue and occasional dizziness that could be related to the sinus bradycardia 2. Mild CAD 3. Hypertension 4. Hyperlipidemia, patient declined statin in the past PLAN: 1. Continue amlodipine 2. Continue telemetry monitoring 3. Plan for permanent pacemaker with Dr. Benitez today. Nurse practitioner note has been reviewed, I agree with the documented findings and plan of care. Patient was seen and examined. Objective - Vital Signs Vital signs: Vital Signs Temp 98.0 F 03/05/23 08:42 Pulse 43 L 03/05/23 09:47 Resp 18 03/05/23 08:42 BP 154/77 03/05/23 09:47 Pulse Ox 96 03/05/23 08:42 FiO2 21 03/01/23 21:32 Intake & Output 03/04/23 03/05/23 03/05/23 18:59 06:59 18:59 Intake Total 1374 360 Balance 1374 360 Intake: Oral 1374 360 Other: Voiding Method Toilet Toilet # Voids 2 2 - Labs CBC & Chem 7: 03/01/23 11:41 03/01/23 11:41
[2023-03-05] MEDS: SODIUM CHLORIDE 0.9% 1,000 ML IV SCH ×2 (14:48)
[2023-03-06] MEDS: SODIUM CHLORIDE 0.9% 1,000 ML IV SCH ×2 (01:56→07:07)
[2023-03-06] MEDS ORDERED: ceFAZolin 1 GM in SODIUM CHLORIDE 0.9% IRRIG BTL 250 ML IRRIGATION PRN (07:59)
[2023-03-06] MEDS: amLODIPine 5 MG TAB PO SCH (08:04)
[2023-03-06] MEDS: ASPIRIN 81 MG PO SCH (08:04)
[2023-03-06] MEDS: HEPARIN SODIUM,PORCINE/PF 5,000 UNIT/0.5 ML SYRINGE SQ SCH ×2 (08:05→15:26)
[2023-03-06] MEDS ORDERED: amLODIPine 5 MG TAB PO ONE (08:15)
[2023-03-06 10:27] VITALS: BMI 65.6
[2023-03-06] MEDS ORDERED: SODIUM CHLORIDE 0.9% 1,000 ML IV ONE (11:30)
[2023-03-06] MEDS ORDERED: LIDOCAINE 1% INJ 10MG/ML (20 ML MDV) ONE (11:42)
--- NOTE | 2023-03-06 11:46 | P.PN ---
Subjective Progress Note Date: 03/06/23 Hospital Course: 62-year-old male with no significant past medical history who was sent from the [place] clinic for bradycardia. Patient states that about a month ago he went to a clinic because of shortness of breath and was found to have bradycardia so they sent him to the hospital. Patient states that he went to [facility] was monitored there for 3 days and then he was discharged and told to follow-up with cardiology. Patient states that he followed up with Dr. Benitez and that day his heart rate was within normal limits so he was told to continue to monitor himself. Patient went to the [place] clinic to get established. He did not have any symptoms or complaints prior to his visit at the clinic. At the clinic he did get a little bit lightheaded. Patient states that sometime last month when he is in the car with his he felt he was almost about to pass out. Ho wever he did not lose consciousness. Cardiology consulted. Patient pending pacemaker placement. Subjective: Patient seen and examined at bedside. No acute events overnight. He claims that he still gets short of breath with ambulation, but denies any presyncopal or syncopal episodes. Denies any chest pain, cough, abdominal pain, nausea, vomiting, urinary or bowel complaints. Pertinent positives and negatives as discussed above, a complete review of systems was performed and all other systems are negative. Vitals Signs Reviewed. General: nontoxic, no distress, appears at stated age Derm: warm, dry Head: atraumatic, normocephalic, symmetric Eyes: EOMI, no lid lag, anicteric sclera Mouth: no lip lesion, mucus membranes moist Cardiovascular: S1S2 reg, bradycardic, no murmur Lungs: CTA bilateral, no rhonchi, no rales , no accessory muscle use Abdominal: soft, nontender to palpation, no guarding, no appreciable organomegaly Ext: no gross muscle atrophy, no edema, no contractures Neuro: CN II-XI grossly intact, no focal neuro deficits Psych: Alert, oriented, appropriate affect Data Reviewed Today: Blood pressure is still elevated at 152/82 this morning, pulse rate at 42 Pertinent Labs: None Imaging: None Assessment and Plan: Symptomatic bradycardia Hypertension -Cardiology following, pending permanent pacemaker -Continue telemetry -Remains hypertensive, amlodipine increased to 10 mg -If continues to stay elevated, we'll consider hydrochlorothiazide DVT ppx: Subcu heparin Code status: Full code Anticipated discharge place: Home Anticipated discharge time: Likely tomorrow Objective - Vital Signs Vital signs: Vital Signs Temp 98.4 F 03/06/23 08:03 Pulse 42 L 03/06/23 08:03 Resp 18 03/06/23 08:03 BP 152/82 03/06/23 08:03 Pulse Ox 98 03/06/23 08:03 FiO2 21 03/01/23 21:32 Intake & Output 03/05/23 03/06/23 03/06/23 18:59 06:59 18:59 Intake Total 340 Balance 340 Weight 88.5 kg 190 kg Intake: IV 100 Oral 240 Other: Voiding Method Toilet Toilet # Voids 2 2 - Labs CBC & Chem 7: 03/01/23 11:41 03/01/23 11:41
[2023-03-06] MEDS ORDERED: fentaNYL (PF) 50 MCG/ML 2 ML AMP ONE (11:52)
[2023-03-06] MEDS ORDERED: IOPAMIDOL-370 100ML BTL INJ ONE (11:55)
[2023-03-06] MEDS ORDERED: MIDAZOLAM 2 MG/2 ML VIAL IVP ONE (11:56)
[2023-03-06] MEDS: MIDAZOLAM 2 MG/2 ML VIAL IV ONE (12:00)
[2023-03-06] MEDS: fentaNYL (PF) 50 MCG/ML 2 ML AMP IVP ONE ×2 (12:00→12:27)
[2023-03-06] MEDS ORDERED: LIDOCAINE 1% INJ 10MG/ML (20 ML MDV) SQ ONE (12:02)
--- NOTE | 2023-03-06 12:04 | P.PN ---
Subjective Progress Note Date: 03/06/23 PROGRESS NOTE The patient is a 62-year-old male with a known history of hypertension, sinus bradycardia and mild CAD, followed by Dr. Benitez who presented with sinus bradycardia and mild fatigue and dizziness with near syncope. He continues to feel tired and he has no chest discomfort. He is slightly dizzy. He continues to be in sinus mechanism with no significant pauses. records obtained from [facility] and reviewed. Patient gives history of episodes where he has had to stop driving and his had to take the steering wheel because he had sudden onset of blurry vision nausea. Another episode where his daughter had to drive him home because he felt completely wiped out. Patient ambulated down the hallway and back to his room while being monitored. His heart rate went up to 108 in he was complaining of shortness of breath and appeared dyspneic. 03/05 Patient denies any new complaints today. He has no chest pain, no lightheadedness or dizziness. Reviewed telemetry monitoring and patient continues to be bradycardic, he is in the 30s during the night but also demons trated heart rate at 37 during the day today. Patient has no triggering factors, no abnormal TSH. He is not on any medications that would slow his heart rate. Discussed case with Dr. Benitez and plan for permanent pacemaker 03/06 Patient was scheduled yesterday for permanent pacemaker implantation but due to scheduling issues, he he was rescheduled for today. Patient denies any new concerns. No chest pain or shortness of breath, no palpitations. Heart rate is in the 40s. Telemetry sinus rhythm. Blood pressure 152/82. Attending increased amlodipine today. Medications: Aspirin, amlodipine 10 mg daily PHYSICAL EXAMINATION: LUNGS: Clear to auscultation HEART: Regular rate and rhythm, S1, S2. No S3. No systolic murmur ABDOMEN: Soft, nontender, no organomegaly EXTREMETIES: No edema IMPRESSION: 1. Sinus bradycardia with no significant pauses, patient has symptoms of fatigue and occasional dizziness that could be related to the sinus bradycardia 2. Mild CAD 3. Hypertension 4. Hyperlipidemia, patient declined statin in the past PLAN: 1. Continue amlodipine 2. Continue telemetry monitoring 3. Plan for permanent pacemaker with Dr. Benitez today. Nurse practitioner note has been reviewed, I agree with the documented findings and plan of care. Patient was seen and examined. Objective - Vital Signs Vital signs: Vital Signs Temp 98.4 F 03/06/23 08:03 Pulse 42 L 03/06/23 08:03 Resp 18 03/06/23 08:03 BP 152/82 03/06/23 08:03 Pulse Ox 98 03/06/23 08:03 FiO2 21 03/01/23 21:32 Intake & Output 03/05/23 03/06/23 03/06/23 18:59 06:59 18:59 Intake Total 340 Balance 340 Intake: IV 100 Oral 240 Other: Voiding Method Toilet Toilet # Voids 2 2 - Labs CBC & Chem 7: 03/01/23 11:41 03/01/23 11:41
[2023-03-06] MEDS ORDERED: ACETAMINOPHEN TAB 325 MG TAB PO PRN (13:50)
[2023-03-06] MEDS ORDERED: ACETAMINOPHEN IV (For NPO) 1,000 MG in EMPTY BAG 1 BAG IVPB ONE (15:00)
--- NOTE | 2023-03-06 18:32 | XR ---
EXAMINATION TYPE: XR chest 1V portable DATE OF EXAM: 03/06/2023 6:06 PM COMPARISON: Chest radiographs from 03/01/2023. TECHNIQUE: XR chest 1V portable Frontal view of the chest. CLINICAL INDICATION:Male, 62 years old with history of Lead placement check; FINDINGS: Lungs/Pleura: There is no evidence of pleural effusion, focal consolidation, or pneumothorax. Right lower lung nodule measuring 16 mm. Pulmonary vascularity: Unremarkable. Heart/mediastinum: Cardiomediastinal silhouette is unremarkable. Two lead cardiac conduction device o verlying the left hemithorax with lead tips projecting over the right ventricle and right atrium. Musculoskeletal: No acute osseous pathology. IMPRESSION: 1. Cardiac conduction leads appear in appropriate position. 2. No acute cardiopulmonary disease/process. 3. Right lower lung nodular density measuring 16 mm which is felt to be seen on prior. Consider comp lete evaluation of the chest with CT.
[2023-03-07] MEDS: HEPARIN SODIUM,PORCINE/PF 5,000 UNIT/0.5 ML SYRINGE SQ SCH ×2 (01:58→07:54)
[2023-03-07] MEDS: SODIUM CHLORIDE 0.9% 1,000 ML IV SCH ×2 (02:31)
[2023-03-07] MEDS: ASPIRIN 81 MG PO SCH (07:54)
[2023-03-07] MEDS ORDERED: amLODIPine 10 MG TAB PO SCH (09:00)
--- NOTE | 2023-03-07 11:32 | P.DS ---
Providers Date of admission: 03/01/23 13:53 Expected date of discharge: 03/07/23 Attending physician: Duran Ma MD Consults: 03/01/23 13:51 Consult Physician Urgent Consulting Provider: [facility] Consult Reason/Comments: Symptomatic bradycardia Do you want consulting provider notified?: Yes Primary care physician: [facility] Hospital Course: Discharge Diagnosis: Symptomatic bradycardia Hypertension Mild CAD Hospital Course: 62-year-old male with no significant past medical history who was sent from the [facility] for bradycardia. Patient states that about a month ago he went to a clinic because of shortness of breath and was found to have bradycardia so they sent him to the hospital. Patient states that he went to [facility] was monitored there for 3 days and then he was discharged and told to follow-up with cardiology. Patient states that he followed up with Dr. Benitez and that day his heart rate was within normal limits so he was told to continue to monitor himself. Patient went to the [facility] to get established. He did not have any symptoms or complaints prior to his visit at the clinic. At the clinic he did get a little bit lightheaded. Patient states that sometime last month when he is in the car with his he felt he was almost about to pass out. However he did not lose consciousness. He was admitted for bradycardia, cardiology was consulted. Pacemaker placed. Symptoms have improved. He is also noted to have essential hypertension, amlodipine was started. He will follow-up with cardiology. Patient seen and examined at bedside. Vital signs reviewed and stable. General: nontoxic, no distress, appears at stated age Derm: warm, dry, dressing clean, dry, intact Head: atraumatic, normocephalic, symmetric Eyes: EOMI, no lid lag, anicteric sclera Mouth: no lip lesion, mucus membranes moist Cardiovascular: S1S2 reg, no murmur Lungs: CTA bilateral, no rhonchi, no rales , no accessory muscle use Abdominal: soft, nontender to palpation, no guarding, no appreciable organomegaly Ext: no gross muscle atrophy, no edema, no contractures Neuro: CN II-XI grossly intact, no focal neuro deficits Psych: Alert, oriented, appropriate affect A total of 33 minutes of time were spent preparing this complex discharge summary. Patient was discharged on 03/07/23 at 11:30. Patient Condition at Discharge: Stable Plan - Discharge Summary Discharge Rx Participant: No New Discharge Prescriptions: New Aspirin 81 mg PO DAILY #60 tab amLODIPine [Norvasc] 10 mg PO DAILY #60 tab Discharge Medication List Aspirin 81 mg PO DAILY #60 tab 03/07/23 [Rx] amLODIPine [Norvasc] 10 mg PO DAILY #60 tab 03/07/23 [Rx] Follow up Appointment(s)/Referral(s): Francisco Benitez DO [STAFF PHYSICIAN] - 2 Weeks ([facility] IN [facility]ICE [facility] IN ONE WEEK) [facility]Clinic [Primary Care Provider] - 1-2 days Patient Instructions/Handouts: Chronic Hypertension (GEN), Pacemaker (DC), Bradycardia (DC) Activity/Diet/Wound Care/Special Instructions: Please see your telephoto installer. Discharge Disposition: HOME SELF-CARE
--- NOTE | 2023-03-07 11:35 | P.PN ---
Subjective Progress Note Date: 03/07/23 PROGRESS NOTE The patient is a 62-year-old male with a known history of hypertension, sinus bradycardia and mild CAD, followed by Dr. Benitez who presented with sinus bradycardia and mild fatigue and dizziness with near syncope. He continues to feel tired and he has no chest discomfort. He is slightly dizzy. He continues to be in sinus mechanism with no significant pauses. records obtained from [facility] and reviewed. Patient gives history of episodes where he has had to stop driving and his had to take the steering wheel because he had sudden onset of blurry vision nausea. Another episode where his daughter had to drive him home because he felt completely wiped out. Patient ambulated down the hallway and back to his room while being monitored. His heart rate went up to 108 in he was complaining of shortness of breath and appeared dyspneic. 03/05 Patient denies any new complaints today. He has no chest pain, no lightheadedness or dizziness. Reviewed telemetry monitoring and patient continues to be bradycardic, he is in the 30s during the night but also demons trated heart rate at 37 during the day today. Patient has no triggering factors, no abnormal TSH. He is not on any medications that would slow his heart rate. Discussed case with Dr. Benitez and plan for permanent pacemaker 03/06 Patient was scheduled yesterday for permanent pacemaker implantation but due to scheduling issues, he he was rescheduled for today. Patient denies any new concerns. No chest pain or shortness of breath, no palpitations. Heart rate is in the 40s. Telemetry sinus rhythm. Blood pressure 152/82. Attending increased amlodipine today. 03/07 Patient underwent permanent pacemaker implantation yesterday with Dr. Benitez. Patient has had no issues overnight. Chest x-ray reveals leads in appropriate position. No acute cardio pulmonary disease process. Right lower lobe nodule density 16 mm. Patient to have pacemaker interrogated and then cleared for discharge. Blood pressure remains elevated and amlodipine was increased to 10 mg daily. No adjustments will be made prior to discharge and patient can follow-up for blood pressure management. Medications: Aspirin, amlodipine 10 mg daily PHYSICAL EXAMINATION: LUNGS: Clear to auscultation HEART: Regular rate and rhythm, S1, S2. No S3. No systolic murmur ABDOMEN: Soft, nontender, no organomegaly EXTREMETIES: No edema IMPRESSION: 1. Sinus bradycardia status post permanent pacemaker 2. Mild CAD 3. Hypertension 4. Hyperlipidemia, patient declined statin in the past PLAN: 1. Continue amlodipine 2. Patient is cleared from cardiology for discharge home following pacemaker interrogation. Patient will follow-up in the office with the device clinic in one week and follow-up with Dr. Benitez. Nurse practitioner note has been reviewed, I agree with the documented findings and plan of care. Patient was seen and examined. Objective - Vital Signs Vital signs: Vital Signs Temp 97.8 F 03/07/23 04:00 Pulse 76 03/07/23 04:00 Resp 16 03/07/23 04:00 BP 143/87 03/07/23 04:00 Pulse Ox 98 03/07/23 04:00 FiO2 21 03/01/23 21:32 Intake & Output 03/06/23 03/07/23 03/07/23 18:59 06:59 18:59 Intake Total 730 Balance 730 Weight 86.3 kg Intake: IV 550 Oral 180 Other: Voiding Method Toilet Toilet # Voids 1 - Labs CBC & Chem 7: 03/01/23 11:41 03/01/23 11:41
[2023-03-07 12:35] VITALS: BP 126/90; PULSE 62; RESP 16; TEMP 98
--- NOTE | 2023-03-07 18:50 | P.OP ---
Description of Procedure: CARDIOLOGY PROCEDURE NOTE [employer] Radar Operator: Dr. Francisco Benitez Procedure performed: Insertion dual chamber permanent pacemaker Site: Left subclavian Indications: Sick Sinus Syndrome, symptomatic sinus bradycardia Complications: None Blood Loss: Minimal Description of Procedure: After the risks, benefits, and alternatives of the above-mentioned procedure was explained in detail with the patient, informed consent was obtained. The patient was taken to the cardiac catheterization suite where the left subclavian area was sterily prepped and draped in the usual fashion. One percent lidocaine was used to anesthetize the left subclavian area. Twenty milliliters of Isoview 370 contrast was injected into the left antecubital vein to allow for direct visualization of the left subclavian vein under fluoroscopy. A 1.5 inch incision was made utilizing a #15 blade in the left subclavian site. Hemostasis was made complete. Electrocautery along with digital blunt dissection was utilized to dissect to the level of the pectoralis muscle fascia and create a pocket large enough to accommodate the generator. A thin walled micro puncuture needle was used to cannulate the left subclavian vein. A guide-wire was inserted through the needle into the vascular lumen under fluoroscopic guidance. The needle was removed. Another thin walled micr puncture needle was used to again cannulate the left subclavian vein. A guide-wire was inserted through the needle into the vascular lumen under fluoroscopic guidance. The needle was removed and both guide-wires were attached to the field. A venous sheath and dilator were advanced over the guidewire into the vascular lumen under fluoroscopic guidance. The dilator and guidewire were then removed. A right ventricular bipolar lead was inserted into the sheath and advanced under fluoroscopic guidance into the right ventricle under fluoroscopic guidance. Adequate sensing and pacing thresh olds were achieved and the lead was screwed into place in the RV apex. The sheath was then torn away. The lead collar was advanced and anchored into place utilizing #0 silk suture. Next, another venous sheath and dilator were advanced under fluoroscopic guidance into the vascular lumen over the guidewire. After removal of the dilator and guidewire, a right atrial bipolar lead was inserted into this sheath and advanced under fluoroscopic guidance into the right atrium. The lead was positioned into the right atrial appendage. Adequate sensing and pacing thresholds were then achieved with patient being in Aflutter at the time and the lead was screwed into place. The sheath was then torn away. The lead collar was advanced and anchored into place utilizing #0 silk suture. The leads were then inserted into the appropriate position into the generator. They were then secured with the setscrew provided. The leads and generator were inserted into the pocket with the leads posterior. The subcutaneous tissue was approximated utilizing #2.0 and 3.0 vicryl in an interrupted stitch fashion. The dermal layer was approximated utilizing #4.0 vicryl. The area was cleansed with sterile saline and dried. A sterile 4x4 dressing was applied and the patient was transferred to the post catheterization holding area in stable and satisfactory condition. The patient tolerated the procedure well. Generator Data Tire Spotter: Enevate Brand: [id number] [place] XT DR MRI Model #: [id number] Serial#: [id number] Right Atrial Bipolar Lead Data: Type: Active fixation lead Tire Spotter: Enevate Model#: 5076-52 Serial Number: [id number] Right Ventricular Bipolar Lead Data: Type: Active fixation lead Tire Spotter: Medtronic Model #: 5076-58 Serial #: [id number] Stimulation Thresholds: Right atrial bipolar lead pacing and sensing thresholds Voltage: 1.0 Impedance: 665 ohms P-wave sensin.5 mV Right Ventricular bipolar lead pacing and sensing thresholds Pulse Width: 0.4ms Voltage: 0.5 volts Impedance: 1084 ohms R-wave sensin mV Parameter Setting: Pacing mode is AAI<=>DDD Lower rate 60 bpm Upper rate 140 bpm Impressions: 1. Successful implantation of a dual chamber permanent pacemaker in the left pectoral site. Plan: 1. Routine post procedure care will be instituted as well as outpatient follow- up surveillance.
== END 2023-03-07 14:43 | disposition home or self-care (01) | DRG 244 ==
LOC: EC 11:10 → 3SCARD 13:53
PROVIDERS: ADMIT Internal Medicine; ATTEND Internal Medicine
PROC: 02H63JZ Insertion of Pacemaker Lead into Right Atrium, Percutaneous Approach (ICD-10-PCS; 2023-03-06)
PROC: 02HK3JZ Insertion of Pacemaker Lead into Right Ventricle, Percutaneous Approach (ICD-10-PCS; 2023-03-06)
PROC: 0JH606Z Insertion of Pacemaker, Dual Chamber into Chest Subcutaneous Tissue and Fascia, Open Approach (ICD-10-PCS; principal; 2023-03-06 10:30)
DX: I49.5 Sick sinus syndrome (principal); E78.5 Hyperlipidemia, unspecified; I10 Essential (primary) hypertension; I25.10 Atherosclerotic heart disease of native coronary artery without angina pectoris
CPT/HCPCS: 33208; 36415; 71045; 71046; 80053; 80061; 83735; 84443; 84484; 85025; 85610; 85730; 93005; 94760; 96372; 99285